=== PATIENT | male | born 1960 | race Two or more races ===

== ENCOUNTER 2020-06-09 13:59 | Outpatient (CLI) | payer OTHER | END 2020-06-09 14:03 | disposition home or self-care (01) | LOC: LAB 13:59 | PROVIDERS: ATTEND Radiology Diagnostic Radiology | DX: C61 Malignant neoplasm of prostate (principal) ==

== ENCOUNTER 2020-06-12 09:43 | Outpatient (CLI) | payer OTHER | END 2020-06-12 10:06 | disposition home or self-care (01) | LOC: TOM 09:43 | DX: C61 Malignant neoplasm of prostate (principal) ==

== ENCOUNTER 2020-07-01 08:44 | Outpatient (CLI) | payer OTHER | END 2020-07-01 08:47 | disposition home or self-care (01) | LOC: NUCLEAR 08:44 | PROVIDERS: ATTEND Urology | DX: C61 Malignant neoplasm of prostate (principal) | CPT/HCPCS: 78803; A9503 ==

== ENCOUNTER 2024-01-22 07:36 | Outpatient (CLI) | payer OTHER | END 2024-01-22 07:51 | disposition home or self-care (01) | LOC: MRI 07:36 | PROVIDERS: ATTEND Neuromusculoskeletal Medicine & OMM | DX: M50.20 Other cervical disc displacement, unspecified cervical region (principal); M50.30 Other cervical disc degeneration, unspecified cervical region; R42 Dizziness and giddiness; H93.3X9 Disorders of unspecified acoustic nerve | CPT/HCPCS: 70553; 72141 ==

== ENCOUNTER 2024-06-03 09:01 | Outpatient (CLI) | payer OTHER | END 2024-06-03 09:05 | disposition home or self-care (01) | LOC: RAD 09:01 | PROVIDERS: ATTEND Orthopaedic Surgery | DX: M41.02 Infantile idiopathic scoliosis, cervical region (principal) ==